=== PATIENT | male | born 1950 | race Caucasian/White ===

== ENCOUNTER 2017-07-20 21:21 | Emergency (ER) | payer OTHER ==
[~2017-07-20] VITALS: Ht 180.3 cm; Wt 121.8 kg
[2017-07-20] MEDS ORDERED: PRINIVIL20 MG PO (21:33)
[2017-07-20] MEDS ORDERED: GLUCOPHAGE500 MG/TAB PO (21:33)
[2017-07-20] MEDS ORDERED: TENORMIN 2525 MG/TAB PO (21:33)
[2017-07-20] MEDS ORDERED: ALDACTONE 25MG25 M1 PO (21:34)
[2017-07-20] MEDS ORDERED: NORVASC 5MG5 MG/TAB PO (21:35)
[2017-07-20] MEDS ORDERED: ASPIRIN 81M81 MG/TA2 PO (21:46)
[2017-07-20] MEDS ORDERED: ZOCOR 10MG10 MG PO (21:46)
[2017-07-20 22:35] LABS: BASO % 0.5 % (0.0-2.0); EOS # 0.1 (0.0-0.7); EOS % 2.9 % (0-4.0); GRAN # 2.4 (1.4-6.5); GRAN % 58.3 % (42.2-75.2); HEMATOCRIT 33.6 % (42.0-52.0); HEMOGLOBIN 11.9 g/dl (13.5-18.0); LYMPH # 1.1 (1.2-3.4); LYMPH % 27.8 % (20.0-51.0); MEAN CELL VOLUME 91 fl (80.0-100.0); MEAN CORPUSCULAR HEMOGLOBIN 32 pg (27.0-31.0); MEAN CORPUSCULAR HGB CONC 35 g/dl (33.0-37.0); MEAN PLATELET VOLUME 9.6 fl (7.4-10.4); MONO # 0.4 (0.1-0.6); PLATELET COUNT 153 K/mm3 (130-400); REDCELL DISTRIBUTION WIDTH-CV 12.7 % (11.5-14.5); WHITE BLOOD COUNT 4.1 K/mm3 (4.8-10.8)
[2017-07-20 22:47] LABS: INR 1.2 (0.8-3.0); PROTHROMBIN TIME 13.3 SECONDS (9.7-12.8)
[2017-07-20 22:50] LABS: PARTIAL THROMBOPLASTIN TIME 28.2 SECONDS (26.0-37.0)
[2017-07-20 22:53] LABS: ADJUSTED CALCIUM 8.9 mg/dL (8.4-10.2); ALANINE AMINOTRANSFERASE 37 U/L (21-72); ALBUMIN 3.5 gm/dL (3.5-5.0); ALKALINE PHOSPHATASE 54 U/L (50-136); ANION GAP 11 mmol/L (7-16); BILIRUBIN,TOTAL 0.6 mg/dL (0.0-1.0); BLOOD UREA NITROGEN 15 mg/dL (9-20); CALCIUM 8.5 mg/dL (8.4-10.2); CARBON DIOXIDE 21 mmol/L (22-30); CHLORIDE 110 mmol/L (98-107); GLUCOSE 128 mg/dL (74-106); POTASSIUM 3.7 mmol/L (3.4-5.0); SODIUM 142 mmol/L (137-145); TOTAL PROTEIN 6.1 gm/dL (6.4-8.2)
[2017-07-20 23:12] LABS: TROPONIN-I < 0.012 ng/mL (0.000-0.034)
[2017-07-20 23:57] VITALS: BP 115/76; PULSE 89
== END 2017-07-20 23:57 | disposition home or self-care (01) ==
LOC: COL.ER 21:21
PROVIDERS: Emergency Medicine
DX: I47.1 Supraventricular tachycardia (principal); E11.9 Type 2 diabetes mellitus without complications; I10 Essential (primary) hypertension; Z79.84 Long term (current) use of oral hypoglycemic drugs; Z79.82 Long term (current) use of aspirin
CPT/HCPCS: J7030

== ENCOUNTER 2020-08-23 04:43 | Observation (INO) | payer MEDICARE, OTHER ==
[~2020-08-23] VITALS: Ht 180.3 cm; Wt 123.0 kg
[~2020-08-23 04:43] MED LIST: ALDACTONE 25MG25 M1 PO; ASPIRIN 81M81 MG/TA2 PO; GLUCOPHAGE500 MG/TAB PO; NORVASC 5MG5 MG/TAB PO; PRINIVIL20 MG PO; TENORMIN 2525 MG/TAB PO; ZOCOR 10MG10 MG PO
[2020-08-23 05:17] LABS: BASO % 0.4 % (0.0-2.0); EOS # 0.1 (0.0-0.7); EOS % 1.9 % (0-4.0); GRAN # 3.2 (1.4-6.5); GRAN % 61.3 % (42.2-75.2); HEMATOCRIT 38.4 % (42.0-52.0); HEMOGLOBIN 13.3 g/dl (13.5-18.0); LYMPH # 1.3 (1.2-3.4); MEAN CELL VOLUME 92 fl (80.0-100.0); MEAN CORPUSCULAR HEMOGLOBIN 32 pg (27.0-31.0); MEAN CORPUSCULAR HGB CONC 35 g/dl (33.0-37.0); MEAN PLATELET VOLUME 9.3 fl (7.4-10.4); MONO # 0.6 (0.1-0.6); MONO % 11.6 % (1.7-9.3); PLATELET COUNT 202 K/mm3 (130-400); RED BLOOD COUNT 4.18 M/mm3 (4.20-5.60); REDCELL DISTRIBUTION WIDTH-CV 13.2 % (11.5-14.5)
[2020-08-23 05:29] LABS: INR 1.1 (0.8-3.0); PROTHROMBIN TIME 12.6 SECONDS (9.7-12.8)
[2020-08-23 05:31] LABS: ALANINE AMINOTRANSFERASE 28 U/L (4-49); ALBUMIN 4.5 gm/dL (3.5-5.0); ALKALINE PHOSPHATASE 57 U/L (50-136); ANION GAP 15 mmol/L (7-16); AST,SGOT 34 U/L (15-37); BILIRUBIN,TOTAL 0.4 mg/dL (0.0-1.0); BLOOD UREA NITROGEN 16 mg/dL (9-20); CALCIUM 8.9 mg/dL (8.4-10.2); CARBON DIOXIDE 20 mmol/L (22-30); CHLORIDE 103 mmol/L (98-107); GLUCOSE 165 mg/dL (74-106); LIPASE 307 U/L (23-300); MAGNESIUM 1.9 mg/dL (1.6-2.3); PARTIAL THROMBOPLASTIN TIME 32.5 SECONDS (26.0-37.0); POTASSIUM 3.9 mmol/L (3.4-5.0); SODIUM 139 mmol/L (137-145); TOTAL PROTEIN 7.5 gm/dL (6.4-8.2)
[2020-08-23 05:46] LABS: TROPONIN-I < 0.012 ng/mL (0.000-0.035)
--- NOTE | 2020-08-23 09:14 | NUR ---
Patient arrived to the floor at this time. He is now comfortable in room. No complaints of pain or discomfort. no shortness of breath or chest pain reported. States he continued to feel palpitations while sitting in the ER but they have ceased since about 5 am. Exam was unremarkable.IV site is CD&I. Denies needs at this time. He is hopeful he will get to go home. Call light is in reach.
[2020-08-23 11:34] VITALS: BP 149/75; PULSE 72; TEMP 98.2
[2020-08-23 16:00] VITALS: BP 148/77; PULSE 82; TEMP 98.5
--- NOTE | 2020-08-23 19:00 | NUR ---
Received report from Jenn. Seen patient awake, sitting in the recliner. He just finished eating his dinner. He denies pain. He is alert, oriented and independent. Call light within reach.
[2020-08-23 19:58] VITALS: BP 150/72; PULSE 88; TEMP 98.4
[2020-08-24] VITALS: BP 139/66; PULSE 74; TEMP 98.7
[2020-08-24 03:17] VITALS: BP 113/63; PULSE 71; TEMP 98.4
--- NOTE | 2020-08-24 06:33 | NUR ---
Patient had uneventful night. He states he was able to sleep. He denies pain. Will endorse to day shift nurse.
[2020-08-24 07:41] VITALS: BP 132/67; PULSE 67; TEMP 97.4
[2020-08-24 07:52] LABS: BASO % 0.5 % (0.0-2.0); EOS # 0.1 (0.0-0.7); EOS % 1.8 % (0-4.0); GRAN # 2.5 (1.4-6.5); GRAN % 62.5 % (42.2-75.2); HEMOGLOBIN 11.7 g/dl (13.5-18.0); LYMPH # 0.9 (1.2-3.4); MEAN CELL VOLUME 93 fl (80.0-100.0); MEAN CORPUSCULAR HEMOGLOBIN 32 pg (27.0-31.0); MEAN CORPUSCULAR HGB CONC 34 g/dl (33.0-37.0); MEAN PLATELET VOLUME 9.6 fl (7.4-10.4); MONO # 0.5 (0.1-0.6); MONO % 11.7 % (1.7-9.3); PLATELET COUNT 170 K/mm3 (130-400); RED BLOOD COUNT 3.68 M/mm3 (4.20-5.60); REDCELL DISTRIBUTION WIDTH-CV 13.2 % (11.5-14.5)
[2020-08-24 07:59] LABS: HEMATOCRIT 34.2 % (42.0-52.0)
[2020-08-24 08:10] LABS: CALCIUM 8.5 mg/dL (8.4-10.2); CREATININE, serum 1.17 (0.66-1.25)
--- NOTE | 2020-08-24 09:16 | NUR ---
Initial visit; Patient thanked [employer] for stopping though declined spiritual care.
[2020-08-24] MEDS ORDERED: TENORMIN 2525 MG/TAB PO (09:37)
--- NOTE | 2020-08-24 09:38 | NUR ---
SW met with the patient to discuss discharge plan. The patient lives in [place] with his , Sandra (#[phone]). He reports independence with ADLs and does not have any DME. The patient's PCP is Dr. Dino Spencer and he receives his medications at [facility]. He reports no difficulties obtaining his meds. The patient does not have a DPOA-HC in EMR, but he states that he does one have completed and that his is his DPOA-HC. The patient plans to return home with his upon discharge. No additional needs at this time.
--- NOTE | 2020-08-24 09:40 | NUR ---
Pt assessment completed and charted, medications administered per mar. Pt sitting in recliner, A&O, independent in room, on room air, breathing is even and unlabored. LS cta. HR irregular/murmur. Pt denies palpitations, dizziness, SOB, N/V/D. Pt ambulating on own in room and halls. Pulses strong bilaterally. Pt denies any chest pain, numbness or tingling. RH INT IV flushes w/o difficulty. No further needs expressed. Awaiting possible discharge later this morning.
--- NOTE | 2020-08-24 10:38 | NUR ---
Tele called, pt sustaining in 170s. Checked on pt, pt walking around in room, walking back over to sit in bed. HR back down to 70s-90s. pt denies any pain or palpitations. No further needs.
[2020-08-24 11:02] VITALS: BP 137/59; PULSE 65; TEMP 98.1
--- NOTE | 2020-08-24 14:40 | NUR ---
Pt awaiting discharge, f/u appt with PCP unable to obtain, non return call. Pt agrees to discharge and call PCP himself to make f/u appt. Discharge instructions discussed and reviewed w/ pt who verbalized understanding, all questions answered. No further needs. IV dc'd w/ catheter tip intact, no issues.
--- NOTE | 2020-08-24 16:29 | NUR ---
Pt escorted out via ambulatory w/ peggy bragg. No issues or needs expressed.
== END 2020-08-24 15:15 | disposition home or self-care (01) ==
LOC: COL.ER 04:43 → MEDICAL 07:43
PROVIDERS: Emergency Medicine; ADMIT Student in an Organized Health Care Education/Training Program
DX: R00.2 Palpitations (principal); I48.91 Unspecified atrial fibrillation; I45.6 Pre-excitation syndrome; E11.9 Type 2 diabetes mellitus without complications; E78.5 Hyperlipidemia, unspecified; I10 Essential (primary) hypertension; Z79.84 Long term (current) use of oral hypoglycemic drugs; Z79.82 Long term (current) use of aspirin
CPT/HCPCS: G0378; J7030